=== PATIENT | male | born 1970 | race Caucasian/White ===

== ENCOUNTER 2020-10-01 10:13 | Day surgery (SDC) | payer BC, OTHER ==
[2020-10-01] VITALS (10 sets, daily range): BP systolic 132–1146; BP diastolic 82–101; PULSE 73–82; TEMP 98.4
[~2020-10-01] VITALS: Ht 185.4 cm; Wt 152.1 kg
[2020-10-01] MEDS ORDERED: PRILOSEC 20MG20 MG PO (10:52)
[2020-10-01] MEDS ORDERED: MICARDIS HCT 251 TAB PO (10:52)
[2020-10-01] MEDS ORDERED: ASPIRIN E.C. 8181 MG PO (10:53)
[2020-10-01] MEDS ORDERED: NORVASC 5MG5 MG/TAB PO (10:53)
[2020-10-01] MEDS ORDERED: JARDIANCE25 PO (10:53)
[2020-10-01] MEDS ORDERED: LIPITOR 10MG10 MG PO (10:54)
[2020-10-01] MEDS ORDERED: VOLTAREN 75 DR75 MG PO (10:55)
[2020-10-01] MEDS ORDERED: GLUCOPHAGE1000 MG PO (10:56)
[2020-10-01 11:16] LABS: PROTHROMBIN TIME 11.3 SECONDS (9.7-12.8)
[2020-10-01 11:17] LABS: HEMATOCRIT 46.6 % (42.0-52.0); HEMOGLOBIN 16.7 g/dl (13.5-18.0); MEAN CELL VOLUME 85 fl (80.0-100.0); MEAN CORPUSCULAR HEMOGLOBIN 31 pg (27.0-31.0); MEAN CORPUSCULAR HGB CONC 36 g/dl (33.0-37.0); MEAN PLATELET VOLUME 11.9 fl (7.4-10.4); PLATELET COUNT 153 K/mm3 (130-400); RED BLOOD COUNT 5.47 M/mm3 (4.20-5.60); REDCELL DISTRIBUTION WIDTH-CV 13.1 % (11.5-14.5)
[2020-10-01 11:19] LABS: PARTIAL THROMBOPLASTIN TIME 35.2 SECONDS (26.0-37.0)
[2020-10-01 11:21] LABS: CREATININE, serum 0.87 (0.66-1.25)
--- NOTE | 2020-10-01 12:09 | NUR ---
SEE MERGE DOCUMENTATION FOR MEDICATION ADMINISTRATION AND INTRA/POST PROCEDURE SEDATION ASSESSMENTS.
[2020-10-01] MEDS ORDERED: EPA FISH OIL1 SGL PO (13:02)
--- NOTE | 2020-10-01 16:06 | NUR ---
Released 13 cc air from Tband and applied pressure dressing to site. INT discontinued intact. Discharge instructions given.
--- NOTE | 2020-10-01 16:18 | NUR ---
Transferred to private car by bennie
== END 2020-10-01 16:18 | disposition home or self-care (01) ==
LOC: COL.CAR 10:13
PROVIDERS: Internal Medicine Cardiovascular Disease
DX: R07.9 Chest pain, unspecified (principal); R94.39 Abnormal result of other cardiovascular function study; I10 Essential (primary) hypertension; E78.2 Mixed hyperlipidemia; I77.819 Aortic ectasia, unspecified site; E11.9 Type 2 diabetes mellitus without complications; G47.33 Obstructive sleep apnea (adult) (pediatric); K21.9 Gastro-esophageal reflux disease without esophagitis; Z79.82 Long term (current) use of aspirin; Z87.891 Personal history of nicotine dependence
CPT/HCPCS: J1644; J2250; J3010